=== PATIENT | male | born 1945 | race Caucasian/White ===

== ENCOUNTER 2023-06-21 13:44 | Outpatient (CLI) | payer OTHER, SELFPAY | END 2023-06-21 13:45 | disposition home or self-care (01) | LOC: ANHAUDASC 13:45 | PROVIDERS: PCP Physician Assistant; Visit Provider Physician Assistant | DX: H90.3 Sensorineural hearing loss, bilateral (principal) | CPT/HCPCS: 92557; 92567 ==